=== PATIENT | male | born 1990 | race Caucasian/White ===

== ENCOUNTER 2016-11-01 12:13 | Emergency (ER) | payer BC ==
[2016-11-01] MEDS ORDERED: Lidocaine 2% Viscous Solution 15 ML Cup PO ONE (12:34)
--- NOTE | 2016-11-01 12:36 | EDM.PDOC ---
ED HPI GENERAL MEDICAL PROBLEM - General Chief Complaint: ENT Problem Stated Complaint: COUGH Time Seen by Provider: 11/01/16 12:22 - History of Present Illness INITIAL COMMENTS - FREE TEXT/NARRATIVE: HISTORY AND PHYSICAL: History of present illness: The patient is a 26-year-old male with a history of strep throat in the past but no other major medical problems and presents with complaints of 2 days of sore throat fevers and body aches. He has not specifically had a cough or runny nose and has had no stomach pain vomiting or diarrhea. He states he has been around ill people at work and he is concerned that he is strep throat as he has had it before. He does have pain with swallowing but is able to take fluids and there is pain with speaking Review of systems: As per history of present illness and below otherwise all systems reviewed and negative. Past medical history: As per history of present illness and as reviewed below otherwise noncontributory. Surgical history: As per history of present illness and as reviewed below otherwise noncontributory. Social history: No reported history of drug or alcohol abuse. Family history: As per history of present illness and as reviewed below otherwise noncontributory. Physical exam: Gen.: Well-developed well-nourished man who is nontoxic and speaks with slightly hoarse voice but is not drooling. Vital signs of been noted by me HEENT: Atraumatic, normocephalic, pupils reactive, negative for conjunctival pallor or scleral icterus, mucous membranes moist, throat clear of exudates the tonsils are swollen bilaterally and equal and beefy red, the uvula is midline and the tonsils are not kissing,, neck supple, there is only shotty anterior cervical adenopathy and no nuchal rigidity nontender, trachea midline. Lungs: Clear to auscultation, breath sounds equal bilaterally, chest nontender. Heart: S1S2, regular rhythm and slightly tachycardic rate on my evaluation Abdomen: Soft, nondistended, nontender. NABS Skin: Normal turgor no evidence of any visible rashes or lesions Genitourinary: Deferred. Rectal: Deferred. Extremities: Atraumatic, negative for cords or calf pain. Neurovascular unremarkable. Neuro: Awake, alert, oriented. Cranial nerves II through XII unremarkable. Cerebellum unremarkable. Motor and sensory unremarkable throughout. Exam nonfocal. Diagnostics: [] Therapeutics: Viscous lidocaine Decadron Impression: Tonsillitis Definitive disposition and diagnosis as appropriate pending reevaluation and review of above. throat Pain Score (Numeric/FACES): 10 - Related Data Allergies Allergy/AdvReac Type Severity Reaction Status Date / Time No Known Allergies Allergy Verified 11/01/16 12:24 Home Meds: Home Meds . [No Known Home Meds] 11/01/16 [History] Past Medical History - Past Health History Medical/Surgical History: Denies Medical/Surgical History Social & Family History - Family History Family Medical History: Noncontributory - Tobacco Use Smoking Status *Q: Never Smoker - Alcohol Use Days Per Week of Alcohol Use: 2 Number of Drinks Per Day: 5 Total Drinks Per Week: 10 - Recreational Drug Use Recreational Drug Use: No ED ROS GENERAL - Review of Systems Review Of Systems: ROS reveals no pertinent complaints other than HPI. ED EXAM, GENERAL - Physical Exam Exam: See Below (See dictation) Course - Vital Signs Last Recorded V/S: Last Vital Signs Temp 37.0 C 11/01/16 12:25 Pulse 113 H 11/01/16 12:25 Resp 18 11/01/16 12:25 BP 131/82 11/01/16 12:25 Pulse Ox 97 11/01/16 12:25 - Orders/Labs/Meds Meds: Medications Discontinued Medications Generic Name Dose Route Start Last Admin Trade Name Bharatq PRN Reason Stop Dose Admin Dexamethasone 10 mg 11/01/16 12:37 Dexamethasone IM 11/01/16 12:38 ONETIME ONE Lidocaine HCl 15 ml 11/01/16 12:34 Xylocaine 2% Viscous PO 11/01/16 12:35 ONETIME ONE Departure - Departure Time of Disposition: 12:39 Disposition: Home, Self-Care 01 Condition: Good Clinical Impression: Tonsillitis - Discharge Information Forms: ED Department Discharge Additional Instructions: The following information is given to patients seen in the emergency department who are being discharged to home. This information is to outline your options for follow-up care. We provide all patients seen in our emergency department with a follow-up referral. The need for follow-up, as well as the timing and circumstances, are variable depending upon the specifics of your emergency department visit. If you don't have a primary care physician on staff, we will provide you with a referral. We always advise you to contact your personal physician following an emergency department visit to inform them of the circumstance of the visit and for follow-up with them and/or the need for any referrals to a consulting specialist. The emergency department will also refer you to a specialist when appropriate. This referral assures that you have the opportunity for followup care with a specialist. All of these measure are taken in an effort to provide you with optimal care, which includes your followup. Under all circumstances we always encourage you to contact your private physician who remains a resource for coordinating your care. When calling for followup care, please make the office aware that this follow-up is from your recent emergency room visit. If for any reason you are refused follow-up, please contact the [facility] emergency department at and ask to speak to the emergency department charge nurse. [facility] Primary care- Internal Medicine and Family [address] [address] Push hydration with water and Gatorade as we discussed or juices that you like. Please eat soft diet and use his lidocaine as needed to help control pain. Use [id number] Tylenol and ibuprofen for fever and pain and take antibiotics until they're finished. Return to ER as needed and as discussed and please call and connect with your provider or one of our clinic doctors in the next few days for reevaluation and further care
[2016-11-01] MEDS ORDERED: Dexamethasone 4 MG/ML SDV IM ONE (12:37)
[2016-11-01] MEDS ORDERED: Dexamethasone 10 MG/ML SDV IM ONE (12:39)
[2016-11-01 13:01] VITALS: BP 137/81
== END 2016-11-01 13:17 | disposition home or self-care (01) ==
LOC: MW.ED 12:13
DX: J03.90 Acute tonsillitis, unspecified (principal)
CPT/HCPCS: 96372; 99282; A9270; J1100; 99283